=== PATIENT | male | born 1940 | race Caucasian/White ===

== ENCOUNTER → 2018-05-16 | Day surgery (SDC) | payer MEDICARE ==
[2018-05-15 15:26] LABS: BASOPHILS % 0.1 % (0.0-1.0); EOSINOPHILS # (AUTO) 0.1 (0.0-0.4); HEMATOCRIT 42.9 % (38.2-49.6); HEMOGLOBIN 13.5 g/dL (14.0-18.0); MEAN CORPUSCULAR HEMOGLOBIN 33.1 pg (28-32); MEAN CORPUSCULAR HGB CONC 31.5 g/dL (31-35); MEAN CORPUSCULAR VOLUME 105.1 fL (81-99); MONOCYTES # (AUTO) 0.6 (0.2-0.8); MONOCYTES % 8.4 % (4.4-11.3); NEUTROPHILS # (AUTO) 4.2 (2.1-6.9); NEUTROPHILS % 60.9 % (38.7-80.0); PLATELET COUNT 182 x10e3/uL (140-360); RED BLOOD COUNT 4.08 x10e6/uL (4.3-5.7); RED CELL DISTRIBUTION WIDTH 12.8 % (11.7-14.4)
[2018-05-15 15:45] LABS: ALBUMIN 3.4 g/dL (3.5-5.0); ALBUMIN/GLOBULIN RATIO 1.1 (0.8-2.0); ANION GAP 10.3 mmol/L (8-16); CALCIUM 9.2 mg/dL (8.4-10.2); CREATININE, SERUM 1.41 mg/dL (0.72-1.25); POTASSIUM 4.3 mmol/L (3.5-5.1)
[~2018-05-16] VITALS: Ht 182.9 cm; Wt 72.1 kg
[~2018-05-16] MED LIST: ADVAIR 250-501 EACH INH; ALPRAZOLAM 0.5 MG TAB ONE; ARICEPT5 MG PO; ASPIRIN 325 MG TAB ONE; CELEBREX200 MG PO; CILOSTAZOL100 MG PO; CLINDAMYCIN HC300 MG PO; DIPHENHYDRAMINE HCL 25 MG CAP ONE; DONEPEZIL HCL5 M1 PO; FENTANYL CITRATE/PF 100MCG/2 ML INJ ONE; FUROSEMIDE40 MG PO; HEPARIN SOD/SOD CHLORIDE 2,000 ML ONE; HYDROCODONE PO; IOPAMIDOL 300MG/ML 100 ML INFUS..BTL IV ONE; KLOR-CON M1010 MEQ PO; LASIX20 MG PO; LEVAQUIN500 MG PO; LIDOCAINE HCL 2% LOCAL 20 ML VIAL ONE; LORATADINE10 MG PO; MELOXICAM7.5 MG PO; MIDAZOLAM HCL 2 MG/2 ML VIAL ONE; MONTELUKAST SOD10 MG PO; NAMENDA5 MG PO; PROAIR HFA INH8.5 GM INH; PROTAMINE SULFATE 10 MG/ML 5 ML VIAL ONE; SODIUM CHLORIDE 0.9% 100 ML 100 ML ONE; SODIUM CHLORIDE 0.9% 1000ML 0 ML ONE; SODIUM CHLORIDE 0.9% 1000ML 1,000 ML ONE; TESTOSTERONE TP; TICAGRELOR 90 MG TABLET ONE; TRIAMCINOLONE A15 G3; VERAPAMIL HCL 2.5 MG/ML 2 ML VIAL ONE
[2018-05-16 12:01] VITALS: BP 159/92
[2018-05-16 14:22] VITALS: BP 123/58
[2018-05-16 14:25] VITALS: BP 130/59
--- NOTE | 2018-05-16 14:35 | NUR ---
Report received from Neelam Martin RN, review of procedural findings and medications given. Patient drowsy, easily aroused. maintains airway and room air saturations of 94-96%. No gross issues of pressure, pain, pallor or dysrhythmia. IV site patent with NS 0.9% at KVO by dial-flow. to left forearm patient hemodynamically stable with hemostasis right groin dressing CDI w/o s/s of bleeding. pt recovering in PACU 14. pt denies need at this time. Bed low and locked, side rails up x2 , call light within reach.. assume of care. - cgf
[2018-05-16 15:10] VITALS: BP 122/75
--- NOTE | 2018-05-16 15:14 | NUR ---
Family to bedside. Right groin remains uncompromised. Reinforced bedrest. POC reviewed with family - cgf
--- NOTE | 2018-05-16 16:12 | NUR ---
Relieved by Dickson Conley RN, review of documented events and VS trend. family at bedside. awaiting DC
--- NOTE | 2018-05-17 00:09 | Operative Report ---
DATE OF PROCEDURE: 05/16/2018 SURGEON: João Lopez MD INDICATION: Peripheral arterial disease with claudication. PROCEDURES PERFORMED: 1. Abdominal aorta catheter placement, abdominal aortogram. 2. Bilateral lower extremity angiograms. 3. Selective catheter placement, right femoral artery and left superficial femoral artery. 4. Additional third-order catheter placement, right femoral artery and left anterior tibial artery. 5. Stent placement in the right common iliac artery. COMPLICATIONS: None. RECOMMENDATIONS: 1. Staged right superficial femoral artery intervention via the left common femoral artery. 2. Staged left superficial femoral artery intervention via the left popliteal artery. BLOOD LOSS: 5 mL. DESCRIPTION OF PROCEDURE: Access obtained in the right femoral artery, 6-Paraguayan sheath was placed. Abdominal aortogram demonstrated 80% stenosis of the right common iliac artery. Right femoral artery appeared to be occluded. Distal vessels could not be seen. The catheter was then advanced from the right femoral artery to the left superficial femoral artery. Flush occlusion of the left femoral artery was noted with reconstitution of left popliteal artery. Two-vessel runoff with catheter placed in the anterior tibial artery was noted. Right femoral artery was completely occluded. Attempts to cross into the left femoral artery failed due to flush occlusion. A single 6 x 37 mm LifeStream stent was deployed post hand with a 9 mm balloon. Excellent end result with complete resolution of the gradient across the aortic valve. 0% residual stenosis. Right groin repaired using Vascade closure device. The patient discharged home with recommendations as listed above. João Lopez MD KSB/MODL /[id number]
== END | disposition home or self-care (01) ==
LOC: CATH LAB 10:03
PROVIDERS: ATTEND Internal Medicine Interventional Cardiology
DX: I70.213 Atherosclerosis of native arteries of extremities with intermittent claudication, bilateral legs (principal); I71.4 Abdominal aortic aneurysm, without rupture; F17.210 Nicotine dependence, cigarettes, uncomplicated; Z01.812 Encounter for preprocedural laboratory examination
CPT/HCPCS: 36415; 37221; 75625; 75716; 80053; 85025; C1725; C1760; C1766; C1769 ×2; C1874; C1887 ×2; C2623; J2001; J2250; J2720; J7030; Q9967; 36247

== ENCOUNTER → 2018-06-20 | Day surgery (SDC) | payer MEDICARE ==
[2018-06-16 11:09] LABS: BASOPHILS % 0.1 % (0.0-1.0); EOSINOPHILS # (AUTO) 0.2 (0.0-0.4); EOSINOPHILS % 1.9 % (0.0-6.0); HEMATOCRIT 40.9 % (38.2-49.6); HEMOGLOBIN 13.6 g/dL (14.0-18.0); LYMPHOCYTES # (AUTO) 1.7 (1.0-3.2); LYMPHOCYTES % 21.6 % (18.0-39.1); MEAN CORPUSCULAR HEMOGLOBIN 34.2 pg (28-32); MEAN CORPUSCULAR HGB CONC 33.3 g/dL (31-35); MEAN CORPUSCULAR VOLUME 102.8 fL (81-99); MONOCYTES # (AUTO) 0.6 (0.2-0.8); MONOCYTES % 7.9 % (4.4-11.3); NEUTROPHILS # (AUTO) 5.3 (2.1-6.9); NEUTROPHILS % 68.1 % (38.7-80.0); PLATELET COUNT 195 x10e3/uL (140-360); RED BLOOD COUNT 3.98 x10e6/uL (4.3-5.7); RED CELL DISTRIBUTION WIDTH 12.4 % (11.7-14.4)
[2018-06-16 11:47] LABS: ALANINE AMINOTRANSFERASE 16 IU/L (0-55); ALBUMIN 3.5 g/dL (3.5-5.0); ALBUMIN/GLOBULIN RATIO 1.2 (0.8-2.0); ALKALINE PHOSPHATASE 114 IU/L (40-150); ANION GAP 9.8 mmol/L (8-16); BLOOD UREA NITROGEN 26 mg/dL (7-26); BUN/CREATININE RATIO 24 (6-25); CALCIUM 9.3 mg/dL (8.4-10.2); CARBON DIOXIDE 28 mmol/L (22-29); CHLORIDE 103 mmol/L (98-107); CREATININE, SERUM 1.09 mg/dL (0.72-1.25); EST GLOMERULAR FILTRATION RATE > 60 ML/MIN (60-); GLUCOSE 92 mg/dL (74-118); POTASSIUM 3.8 mmol/L (3.5-5.1); SODIUM 137 mmol/L (136-145)
[~2018-06-20] VITALS: Ht 182.9 cm; Wt 81.6 kg
[~2018-06-20] MED LIST changes: -ASPIRIN 325 MG TAB ONE; +ATORVASTATIN CA20 MG PO; +CLOPIDOGREL75 MG PO; +HEPARIN SOD (PORCINE) 1000 UNIT/ML 30ML ONE; +NITROGLYCERIN/D5W 200 MCG/ML 250 ML ONE; -PROTAMINE SULFATE 10 MG/ML 5 ML VIAL ONE; -SODIUM CHLORIDE 0.9% 100 ML 100 ML ONE; -SODIUM CHLORIDE 0.9% 1000ML 0 ML ONE
--- NOTE | 2018-06-20 13:30 | NUR ---
9006 Received pt to rm #9 Identiferx2 Prepped in usual fashion for peripheral procedure Dr John quezada at bedside.VS stable Sinus levi ds/rn
[2018-06-20 13:45] VITALS: BP 158/80
[2018-06-20 15:30] VITALS: BP 108/67
--- NOTE | 2018-06-20 15:30 | NUR ---
Received to clinical lab technologist recovery room #10. A,A,O x3. VSS, denies pain, Alisson dressing to left groin C/D/I. Mick. pedal pulses palpable. No complaints, at bedside.
[2018-06-20 15:45] VITALS: BP 99/60
--- NOTE | 2018-06-20 15:52 | NUR ---
Report to Julee Grider RN.
[2018-06-20 17:00] VITALS: BP_SYST 123; BP_SYST 133; BP_DIAS 77
[2018-06-20 18:00] VITALS: BP 99/66
[2018-06-20 18:30] VITALS: BP 110/70
--- NOTE | 2018-07-07 08:43 | Operative Report ---
DATE OF PROCEDURE: 06/20/2018 SURGEON: João Lopez MD INDICATION: Peripheral arterial disease and claudication. PROCEDURES PERFORMED: 1. Abdominal aortogram. 2. Third order catheter placement from the left femoral artery to right superficial femoral artery. 3. Additional third-order catheter placement from the left femoral artery to the right anterior tibial artery. 4. Atherectomy of the right femoral artery with secondary thrombectomy. COMPLICATIONS: None. RECOMMENDATIONS: Staged intervention on the left femoral artery via the left popliteal approach. DESCRIPTION OF PROCEDURE: Access obtained in the left femoral artery. Patent stent in the right iliac. The catheter was advanced in the left femoral artery to the right superficial femoral artery. Complete occlusion of the right femoral artery was noted. The lesion was crossed using a Glidewire and the orbital atherectomy was performed. Large amounts of visible thrombus for which was secondary manual aspiration thrombectomy was required. Balloon angioplasty with 6 mm balloon resulted in excellent result, two vessel runoff with an occluded anterior tibial. No complications. Left groin repaired using Mynx closure device. The patient was discharged home same day. João Lopez MD KSB/MODL /[id number]
== END | disposition home or self-care (01) ==
LOC: CATH LAB 11:24
PROVIDERS: ATTEND Internal Medicine Interventional Cardiology
DX: I70.211 Atherosclerosis of native arteries of extremities with intermittent claudication, right leg (principal); I87.2 Venous insufficiency (chronic) (peripheral); Z01.812 Encounter for preprocedural laboratory examination; Z79.82 Long term (current) use of aspirin; Z79.02 Long term (current) use of antithrombotics/antiplatelets; Z87.891 Personal history of nicotine dependence
CPT/HCPCS: 36415; 37186; 37225; 75716; 80053; 85025; C1724; C1725; C1769 ×2; C1887 ×2; C2623 ×2; J1644; J2001; J2250; J7030; Q9967

== ENCOUNTER 2018-07-25 10:16 | Observation (INO) | payer MEDICARE ==
[2018-07-24 10:40] LABS: BASOPHILS % 0.1 % (0.0-1.0); EOSINOPHILS # (AUTO) 0.1 (0.0-0.4); EOSINOPHILS % 1.6 % (0.0-6.0); HEMATOCRIT 44.1 % (38.2-49.6); HEMOGLOBIN 14.6 g/dL (14.0-18.0); LYMPHOCYTES # (AUTO) 1.9 (1.0-3.2); MEAN CORPUSCULAR HEMOGLOBIN 33.1 pg (28-32); MEAN CORPUSCULAR HGB CONC 33.1 g/dL (31-35); MONOCYTES # (AUTO) 0.7 (0.2-0.8); MONOCYTES % 8.6 % (4.4-11.3); NEUTROPHILS # (AUTO) 4.9 (2.1-6.9); PLATELET COUNT 197 x10e3/uL (140-360); RED BLOOD COUNT 4.41 x10e6/uL (4.3-5.7); RED CELL DISTRIBUTION WIDTH 12.6 % (11.7-14.4)
[2018-07-24 10:47] LABS: ALANINE AMINOTRANSFERASE 22 IU/L (0-55); ALBUMIN 3.9 g/dL (3.5-5.0); ALBUMIN/GLOBULIN RATIO 1.3 (0.8-2.0); ALKALINE PHOSPHATASE 124 IU/L (40-150); ANION GAP 10.1 mmol/L (8-16); BLOOD UREA NITROGEN 25 mg/dL (7-26); BUN/CREATININE RATIO 23 (6-25); CALCIUM 9.4 mg/dL (8.4-10.2); CARBON DIOXIDE 28 mmol/L (22-29); CHLORIDE 104 mmol/L (98-107); CREATININE, SERUM 1.11 mg/dL (0.72-1.25); EST GLOMERULAR FILTRATION RATE > 60 ML/MIN (60-); GLUCOSE 87 mg/dL (74-118); POTASSIUM 4.1 mmol/L (3.5-5.1); SODIUM 138 mmol/L (136-145)
[2018-07-25] VITALS (13 sets, daily range): BP systolic 102–155; BP diastolic 51–95
[~2018-07-25] VITALS: Ht 182.9 cm; Wt 82.6 kg
[~2018-07-25 10:16] MED LIST changes: -ALPRAZOLAM 0.5 MG TAB ONE; -DIPHENHYDRAMINE HCL 25 MG CAP ONE; -FENTANYL CITRATE/PF 100MCG/2 ML INJ ONE; -HEPARIN SOD (PORCINE) 1000 UNIT/ML 30ML ONE; -HEPARIN SOD/SOD CHLORIDE 2,000 ML ONE; -IOPAMIDOL 300MG/ML 100 ML INFUS..BTL IV ONE; -LIDOCAINE HCL 2% LOCAL 20 ML VIAL ONE; -MIDAZOLAM HCL 2 MG/2 ML VIAL ONE; -NITROGLYCERIN/D5W 200 MCG/ML 250 ML ONE; -SODIUM CHLORIDE 0.9% 1000ML 1,000 ML ONE; -TICAGRELOR 90 MG TABLET ONE; -VERAPAMIL HCL 2.5 MG/ML 2 ML VIAL ONE
[2018-07-25] MEDS ORDERED: LIDOCAINE HCL 2% LOCAL 20 ML VIAL ONE (11:42)
[2018-07-25] MEDS ORDERED: HEPARIN SOD (PORCINE) 1000 UNIT/ML 30ML ONE (11:42)
[2018-07-25] MEDS ORDERED: FENTANYL CITRATE/PF 100MCG/2 ML INJ ONE (11:42)
[2018-07-25] MEDS ORDERED: HEPARIN SOD/SOD CHLORIDE 2,000 ML ONE (11:42)
[2018-07-25] MEDS ORDERED: MIDAZOLAM HCL 2 MG/2 ML VIAL ONE (11:42)
[2018-07-25] MEDS ORDERED: SODIUM CHLORIDE 0.9% 1000ML 1,000 ML ONE ×2 (11:43→12:26)
[2018-07-25] MEDS ORDERED: IOPAMIDOL 300MG/ML 100 ML INFUS..BTL IV ONE (11:43)
[2018-07-25] MEDS ORDERED: VERAPAMIL HCL 2.5 MG/ML 2 ML VIAL ONE (12:28)
[2018-07-25] MEDS ORDERED: SODIUM CHLORIDE 0.9% 50ML 50 ML ONE (12:45)
[2018-07-25] MEDS ORDERED: TICAGRELOR 90 MG TABLET ONE (12:45)
[2018-07-25] MEDS ORDERED: ASPIRIN 325 MG TAB ONE (12:46)
--- NOTE | 2018-07-25 13:00 | NUR ---
Report received from Troy Burgos RN, review of procedural findings and medications given. Patient alert and oriented. maintains airway and room air saturations of 96-98%. No gross issues of pressure, pain, pallor or dysrhythmia. IV site patent with NS 0.9% at 100ml/hr per gravity. patient hemodynamically stable with dressing to 6 omani sheath left posterior popliteal. dressing CDI w/o s/s of bleeding, caps present. transported to acu 8 - cgf procedure: CSI of L popliteal posterior approach Sheath puller: NA Meds Given Intra-Procedure Sedatives Versed - 2 mg Fentanyl - 50 mcg Anticoagulants Heparin - 8000 Units Fluids Input - 250ml Output - dtv Contrast Isovue 300 - 80ml Other Meds Protamine 80mg IV Brilinta 180mg PO Aspirin 325mg PO
--- NOTE | 2018-07-25 13:08 | NUR ---
Troy Burgos RN reporting that ACT 131 and sheath can be DC'd. Awaiting for available staff to assist in pull. pt and family updated on POC - cgf
--- NOTE | 2018-07-25 13:35 | NUR ---
pt placed prone w/o duress and family asked to wait in waiting till after sheath pull.
--- NOTE | 2018-07-25 13:40 | NUR ---
6french sheath aspirated, liberated from stat lock, and removed by Veronica Ya RTr. post sheath management underway
--- NOTE | 2018-07-25 13:56 | NUR ---
sheath post management complete. 15 minute hold time. no s/s of hematoma, no gross discolor, or pain. clean dressing applied. pt educated on strict bedrest and placed back to sitting position. family back to room
--- NOTE | 2018-07-25 15:06 | Operative Report ---
DATE OF PROCEDURE: 07/25/2018 SURGEON: João Lopez MD INDICATION: Peripheral arterial disease, claudication of the left lower extremity. PROCEDURES PERFORMED: 1. Ultrasound-guided access in the left popliteal artery. 2. Third order catheter placement from the left popliteal artery to the left iliac artery with unilateral extremity angiogram. 3. Atherectomy and drug-coated balloon angioplasty of the left femoral artery. 4. Secondary thrombectomy of the left femoral artery. COMPLICATIONS: None. RECOMMENDATIONS: Dual antiplatelet therapy. DESCRIPTION OF PROCEDURE: Access was obtained of the left popliteal artery using ultrasound guidance. A 6-Hungarian sheath was placed. The patient received 8000 units of intravenous heparin for anticoagulation. There was complete occlusion of the left femoral artery. Using a Roadrunner wire and support catheter, chronic total occlusions were crossed. The wire was exchanged to a Viper wire. Orbital atherectomy resulted in large amounts of visible thrombus for which manual and secondary thrombectomy of the left femoral artery was required, 5 and 6 mm drug-coated balloon angioplasty was performed. Excellent end result, less than 10% residual stenosis, two-vessel runoff to the left foot. No complications. Sheath was removed under manual pressure. The patient discharged home same day. João Lopez MD KSB/MODL /[id number]
--- NOTE | 2018-07-25 16:02 | NUR ---
Received patient from labor commissioner, alert ox3 pleasant gentleman, dgx of PAD s/p peripheral angiogram to left FFA via left popliteal with CSI and balloon, dressing in place. No drainage noted, no swelling noted, Bilateral LE however cold to touch and faint DPD and patient states is his baseline. VSS, denies any pains at this moment, IV patent, patient to lay flat until 6pm per report from cath lap nurse. Will monitor. Call light within reach
[2018-07-25] MEDS ORDERED: MORPHINE SULFATE INJ 4 MG/ML INJ 1ML IV PRN (16:15)
[2018-07-25] MEDS ORDERED: HYDROCODONE/APAP 5MG-325MG TAB PO PRN (16:15)
[2018-07-25] MEDS ORDERED: SODIUM CHLORIDE 0.9% 1000ML 1,000 ML IV SCH (16:15)
--- NOTE | 2018-07-25 16:23 | NUR ---
Orders transcribed from paper chart to [employer].
--- NOTE | 2018-07-25 16:24 | NUR ---
Patient denies any pains at the moment
--- NOTE | 2018-07-25 18:15 | NUR ---
BP 117/62, P58, Temp-97.5, O2Sats 96% RA, no resp distress, left popliteal area with no drainage, no bleeding, medicated for pain, IV line removed and cath tip in place, dressing applied and patient discharged according to orders. Presents stable at this time.
== END 2018-07-25 18:23 | disposition home or self-care (01) ==
LOC: CATH LAB 10:16 → CATH LAB V 13:55 → MED/SURG 15:54
PROVIDERS: ADMIT Internal Medicine Interventional Cardiology; ATTEND Internal Medicine Interventional Cardiology
DX: I70.212 Atherosclerosis of native arteries of extremities with intermittent claudication, left leg (principal); I87.2 Venous insufficiency (chronic) (peripheral); R60.0 Localized edema; Z87.891 Personal history of nicotine dependence; Z79.82 Long term (current) use of aspirin; I71.4 Abdominal aortic aneurysm, without rupture
CPT/HCPCS: 36415; 37186; 37225; 75710; 76937; 80053; 85025; C1724; C1725; C1766; C1769; C1887; C2623 ×2; G0378; J1644; J2001; J2250; J7030; Q9967; 36247

== ENCOUNTER → 2018-12-26 | Day surgery (SDC) | payer MEDICARE ==
[2018-12-20 10:27] LABS: BASOPHILS % 0.2 % (0.0-1.0); EOSINOPHILS # (AUTO) 0.1 (0.0-0.4); HEMATOCRIT 45.3 % (38.2-49.6); HEMOGLOBIN 14.8 g/dL (14.0-18.0); LYMPHOCYTES % 24.2 % (18.0-39.1); MEAN CORPUSCULAR HEMOGLOBIN 32.7 pg (28-32); MEAN CORPUSCULAR HGB CONC 32.7 g/dL (31-35); MEAN CORPUSCULAR VOLUME 100.2 fL (81-99); MONOCYTES # (AUTO) 0.8 (0.2-0.8); MONOCYTES % 10.1 % (4.4-11.3); NEUTROPHILS # (AUTO) 5.2 (2.1-6.9); NEUTROPHILS % 64.1 % (38.7-80.0); PLATELET COUNT 225 x10e3/uL (140-360); RED BLOOD COUNT 4.52 x10e6/uL (4.3-5.7); RED CELL DISTRIBUTION WIDTH 14.5 % (11.7-14.4)
[2018-12-20 10:52] LABS: ALBUMIN 3.9 g/dL (3.5-5.0); ALBUMIN/GLOBULIN RATIO 1.3 (0.8-2.0); ANION GAP 12.7 mmol/L (8-16); CALCIUM 9.8 mg/dL (8.4-10.2); CREATININE, SERUM 1.17 mg/dL (0.72-1.25); POTASSIUM 3.7 mmol/L (3.5-5.1)
[~2018-12-26] VITALS: Ht 182.9 cm; Wt 82.6 kg
[2018-12-26] VITALS (8 sets, daily range): BP systolic 103–156; BP diastolic 60–81
[~2018-12-26] MED LIST changes: +ALPRAZOLAM 0.5 MG TAB ONE; +DIPHENHYDRAMINE HCL 25 MG CAP ONE; +FENTANYL CITRATE/PF 100MCG/2 ML INJ ONE; +HEPARIN SOD (PORCINE) 1000 UNIT/ML 30ML ONE; +HEPARIN SOD/SOD CHLORIDE 2,000 ML ONE; +IOPAMIDOL 300MG/ML 100 ML INFUS..BTL IV ONE; +LIDOCAINE HCL 2% LOCAL 20 ML VIAL ONE; +MIDAZOLAM HCL 2 MG/2 ML VIAL ONE; +NALOXONE HCL INJ 0.4 MG/ML AMP ONE; +SODIUM CHLORIDE 0.9% 1000ML 1,000 ML ONE; +VERAPAMIL HCL 2.5 MG/ML 2 ML VIAL ONE
--- NOTE | 2018-12-26 17:02 | NUR ---
1702pm pt in Rm #20, Alert oriented and appropriate, PERRLA, respirations even and unlabored to room air. Pulses x4 extremities equal and faint. Pedal pulses PT/DP weak to nonexistent and marked. Cap fill brisk < 3 sec.Left foot swollen pedal pulse palpable.. Rt arm TR band site with gross issues pain pallor or pressure. Skin warm and dry integrity appears intact in general. IV let lateral arm site and presents healthy . NS 0.9% started at 100ml/hr per controller. Abdomen soft and supple. pt offered toileting, denies need to urinate or defecate. Personal affects with patient. Family at bedside Lottie. Pt and family verbalizes understanding of POC. Rt Tr band ok to decrease at 1800pm. Tolerated po intake. ds/rn
--- NOTE | 2018-12-26 18:00 | NUR ---
1800 RADIAL Compression removal: Initial Cuff volume 13 cc 1800 -2cc Removed No hematoma/bleeding noted with normal neurovascular function. 1815 -5cc Removed No hematoma/ bleeding noted with normal neurovascular function. 1830 -5cc Removed No hematoma/bleeding noted with normal neurovascular function. 1845 -1cc Removed No hematoma/ bleeding noted with normal neurovascular function. Air removal completed. Stasis achieved sterile 2x2,Tegaderm, Coban dressing No hematoma, bleeding noted with normal neurovascular function. Wrist splint in place. Pt instructed on POC. Ds/Rn
--- NOTE | 2018-12-26 18:15 | NUR ---
1814 pt decsribes pain to rt arm note swollen upper arm Informed Md souza and pressure coban dressing applied. Explained to how to check neuro vascular function She understands well. Positive neuro vascular function ds/rn
--- NOTE | 2018-12-26 18:24 | NUR ---
1823 Dr Lopez check site ok to keep rt upper pressure dressing on till am on left upper arm. Ar continues to have normal neuro vascular function. ds/rn
--- NOTE | 2018-12-26 18:45 | NUR ---
1845Pt meets DC criteria Rt TR band assessed for s/s of complication and presence of hematoma. Skin warm, dry, no discolor, and pulses present. IV removed from left lat site. Distal tip appears intact. VS WNL. Pt denies pain, sob, or need at this time. Family at XXXXX. Review of discharge paperwork and follow up instructions. verbalized understanding. Pt to wheelchair and transported to front of hospital. Transferred to private vehicle under own strength w/o incident with DC paperwork in hand. - ds/rn
--- NOTE | 2018-12-26 18:45 | NUR ---
1845 pt left with in attendance aware or light pressure dressing to upper arm and that it may be removed with am shower. Normal neurovascular function to Tr-band site and denies discomfort. Aware to call DR Lopez if further swelling or un controlled bleeding occurs. vs and ekg stable ds/rn
--- NOTE | 2018-12-26 23:33 | Operative Report ---
DATE OF PROCEDURE: 12/26/2018 SURGEON: João Lopez MD INDICATION: Peripheral arterial disease, claudication of left lower extremity. PROCEDURES PERFORMED: 1. Bilateral lower extremity angiograms. 2. Third order catheter placement from the right radial artery to the left common femoral artery. 3. Additional third-order catheter placement from the right radial artery to the left tibial artery. 4. Atherectomy and angioplasty of the left proximal superficial femoral artery. 5. Secondary thrombectomy of the left superficial femoral artery. 6. Deployment of right wrist TR band. COMPLICATIONS: None. BLOOD LOSS: Minimal. RECOMMENDATIONS: Dual antiplatelet therapy for life. DESCRIPTION OF PROCEDURE: Access was obtained in the right radial artery. A 6-Somali sheath was placed, which was advanced from the right radial artery to the left common femoral artery. Bilateral angiograms of the lower extremity demonstrated mild disease in the right femoral artery, left proximal superficial femoral artery 80% stenosis. The patient received heparin for anticoagulation. Orbital atherectomy of the left femoral artery using a 2 mm CSI device was performed, large amounts of visible thrombus with manual aspiration thrombectomy was required. Balloon angioplasty with 6 mm balloon, excellent end result. Three-vessel runoff to the left foot. No complications. Right wrist TR band applied. The patient was discharged home same day. João Lopez MD KSB/MODL /[id number]
== END | disposition home or self-care (01) ==
LOC: CATH LAB 13:00
PROVIDERS: ATTEND Internal Medicine Interventional Cardiology
DX: I70.212 Atherosclerosis of native arteries of extremities with intermittent claudication, left leg (principal); I87.2 Venous insufficiency (chronic) (peripheral); Z01.812 Encounter for preprocedural laboratory examination; Z79.02 Long term (current) use of antithrombotics/antiplatelets; Z79.82 Long term (current) use of aspirin
CPT/HCPCS: 36415; 37186; 37225; 80053; 85025; C1724 ×2; C1769 ×2; J1644; J2001; J2250; J2310; J3010; J7030; Q9967

== ENCOUNTER → 2020-03-25 | Day surgery (SDC) | payer OTHER ==
[2020-03-20 13:58] LABS: BASOPHILS % 0.1 % (0.0-1.0); EOSINOPHILS # (AUTO) 0.1 (0.0-0.4); EOSINOPHILS % 1.9 % (0.0-6.0); HEMATOCRIT 41.7 % (38.2-49.6); HEMOGLOBIN 13.5 g/dL (14.0-18.0); LYMPHOCYTES # (AUTO) 1.7 (1.0-3.2); LYMPHOCYTES % 24.6 % (18.0-39.1); MEAN CORPUSCULAR HEMOGLOBIN 32.2 pg (28-32); MEAN CORPUSCULAR HGB CONC 32.4 g/dL (31-35); MEAN CORPUSCULAR VOLUME 99.5 fL (81-99); MONOCYTES # (AUTO) 0.7 (0.2-0.8); MONOCYTES % 9.8 % (4.4-11.3); NEUTROPHILS # (AUTO) 4.3 (2.1-6.9); NEUTROPHILS % 63.2 % (38.7-80.0); PLATELET COUNT 190 x10e3/uL (140-360); RED BLOOD COUNT 4.19 x10e6/uL (4.3-5.7); RED CELL DISTRIBUTION WIDTH 13.3 % (11.7-14.4)
[2020-03-20 14:18] LABS: ALANINE AMINOTRANSFERASE 17 IU/L (0-55); ALBUMIN 3.5 g/dL (3.5-5.0); ALBUMIN/GLOBULIN RATIO 1.2 (0.8-2.0); ALKALINE PHOSPHATASE 96 IU/L (40-150); ANION GAP 13.2 mmol/L (8-16); BLOOD UREA NITROGEN 23 mg/dL (7-26); BUN/CREATININE RATIO 21 (6-25); CALCIUM 8.7 mg/dL (8.4-10.2); CARBON DIOXIDE 29 mmol/L (22-29); CHLORIDE 103 mmol/L (98-107); CREATININE, SERUM 1.12 mg/dL (0.72-1.25); EST GLOMERULAR FILTRATION RATE > 60 ML/MIN (60-); GLUCOSE 99 mg/dL (74-118); POTASSIUM 4.2 mmol/L (3.5-5.1); SODIUM 141 mmol/L (136-145)
[~2020-03-25] MED LIST changes: +ASPIRIN 325 MG TAB ONE; +ASPIRIN EC81 MG PO; +CLOPIDOGREL BISULFATE 75 MG TAB ONE; -HEPARIN SOD (PORCINE) 1000 UNIT/ML 30ML ONE; +IOPAMIDOL 370 MG/ML 200 ML INFUS..BTL INJ ONE; -NALOXONE HCL INJ 0.4 MG/ML AMP ONE; -VERAPAMIL HCL 2.5 MG/ML 2 ML VIAL ONE
[2020-03-25 13:22] VITALS: BP_SYST 106; BP_SYST 108; BP_DIAS 77; BP_DIAS 88
[2020-03-25 13:30] VITALS: BP_SYST 108; BP_SYST 113; BP_DIAS 67; BP_DIAS 69
[2020-03-25 13:45] VITALS: BP 113/64
[2020-03-25 14:00] VITALS: BP 124/70
[2020-03-25 14:30] VITALS: BP 136/83
[2020-03-25 15:00] VITALS: BP 141/77
== END | disposition home or self-care (01) ==
LOC: CATH LAB 10:23
PROVIDERS: ATTEND Internal Medicine Interventional Cardiology
DX: I25.10 Atherosclerotic heart disease of native coronary artery without angina pectoris (principal); I25.118 Atherosclerotic heart disease of native coronary artery with other forms of angina pectoris; Z01.812 Encounter for preprocedural laboratory examination; Z20.822 Contact with and (suspected) exposure to COVID-19; Z79.02 Long term (current) use of antithrombotics/antiplatelets; Z79.82 Long term (current) use of aspirin
CPT/HCPCS: 36247; 36415; 37186; 37225; 75625; 75716; 76937; 80053; 85025; 93458; 99152; 99153; C1714; C1725; C1760; C1769; J2001; J2250; J3010; J7030; Q9967; U0002

== ENCOUNTER → 2021-06-29 | Outpatient (CLI) | payer OTHER ==
[~2021-06-29] MED LIST changes: -ALPRAZOLAM 0.5 MG TAB ONE; -ASPIRIN 325 MG TAB ONE; -CLOPIDOGREL BISULFATE 75 MG TAB ONE; -DIPHENHYDRAMINE HCL 25 MG CAP ONE; -FENTANYL CITRATE/PF 100MCG/2 ML INJ ONE; -HEPARIN SOD/SOD CHLORIDE 2,000 ML ONE; -IOPAMIDOL 300MG/ML 100 ML INFUS..BTL IV ONE; -IOPAMIDOL 370 MG/ML 200 ML INFUS..BTL INJ ONE; -LIDOCAINE HCL 2% LOCAL 20 ML VIAL ONE; -MIDAZOLAM HCL 2 MG/2 ML VIAL ONE; -SODIUM CHLORIDE 0.9% 1000ML 1,000 ML ONE
== END ==
LOC: RAD 10:16
PROVIDERS: ATTEND Orthopaedic Surgery
DX: S72.001D Fracture of unspecified part of neck of right femur, subsequent encounter for closed fracture with routine healing (principal)

== ENCOUNTER → 2021-07-14 | Day surgery (SDC) | payer OTHER ==
[2021-07-10 12:48] LABS: BASOPHILS % 0.2 % (0.0-1.0); EOSINOPHILS # (AUTO) 0.1 (0.0-0.4); EOSINOPHILS % 0.5 % (0.0-6.0); HEMATOCRIT 40.4 % (38.2-49.6); HEMOGLOBIN 13.1 g/dL (14.0-18.0); LYMPHOCYTES # (AUTO) 1.8 (1.0-3.2); LYMPHOCYTES % 18.6 % (18.0-39.1); MEAN CORPUSCULAR HEMOGLOBIN 33.1 pg (28-32); MEAN CORPUSCULAR HGB CONC 32.4 g/dL (31-35); MONOCYTES # (AUTO) 0.8 (0.2-0.8); MONOCYTES % 8.5 % (4.4-11.3); NEUTROPHILS # (AUTO) 6.8 (2.1-6.9); NEUTROPHILS % 71.5 % (38.7-80.0); PLATELET COUNT 235 x10e3/uL (140-360); RED BLOOD COUNT 3.96 x10e6/uL (4.3-5.7); RED CELL DISTRIBUTION WIDTH 14.6 % (11.7-14.4)
[2021-07-10 13:07] LABS: ALBUMIN 3.3 g/dL (3.5-5.0); ANION GAP 14.6 mmol/L (8-16); CALCIUM 8.8 mg/dL (8.4-10.2); CREATININE, SERUM 0.92 mg/dL (0.72-1.25); POTASSIUM 3.6 mmol/L (3.5-5.1)
[2021-07-14] VITALS (11 sets, daily range): BP systolic 109–156; BP diastolic 62–84
[~2021-07-14] VITALS: Ht 182.9 cm; Wt 70.8 kg
[~2021-07-14] MED LIST changes: +ALBUTEROL0.63 MG/3 NEB; +ALENDRONATE SOD70 MG PO; +ALPRAZOLAM 0.5 MG TAB ONE; +DIPHENHYDRAMINE HCL 25 MG CAP ONE; +FENTANYL CITRATE/PF 100MCG/2 ML INJ ONE; +HEPARIN SOD/SOD CHLORIDE 2,000 ML ONE; +IOPAMIDOL 370 MG/ML 100 ML INFUS..BTL INJ ONE; +LIDOCAINE HCL 1% LOCAL INJ 20 ML VIAL ONE; +LINZESS145 MCG PO; +MIDAZOLAM HCL 2 MG/2 ML VIAL ONE; +SODIUM CHLORIDE 0.9% 1000ML 1,000 ML ONE; +TORSEMIDE100 MG PO; +VERAPAMIL HCL 2.5 MG/ML 2 ML VIAL ONE
== END | disposition home or self-care (01) ==
LOC: CATH LAB 11:02
PROVIDERS: ATTEND Internal Medicine Interventional Cardiology
DX: I25.118 Atherosclerotic heart disease of native coronary artery with other forms of angina pectoris (principal); R94.39 Abnormal result of other cardiovascular function study; Z01.812 Encounter for preprocedural laboratory examination; Z20.822 Contact with and (suspected) exposure to COVID-19; Z79.02 Long term (current) use of antithrombotics/antiplatelets; Z79.82 Long term (current) use of aspirin; Z79.899 Other long term (current) drug therapy
CPT/HCPCS: 36415; 76937; 80053; 83880; 85025; 93454; 99152; C1887; C1894; J2001; J2250; J3010; J7030; Q9967; U0002

== ENCOUNTER → 2021-08-10 | Outpatient (CLI) | payer MEDICARE, OTHER ==
[~2021-08-10] MED LIST changes: -ALPRAZOLAM 0.5 MG TAB ONE; -DIPHENHYDRAMINE HCL 25 MG CAP ONE; -FENTANYL CITRATE/PF 100MCG/2 ML INJ ONE; -HEPARIN SOD/SOD CHLORIDE 2,000 ML ONE; -IOPAMIDOL 370 MG/ML 100 ML INFUS..BTL INJ ONE; -LIDOCAINE HCL 1% LOCAL INJ 20 ML VIAL ONE; -MIDAZOLAM HCL 2 MG/2 ML VIAL ONE; -SODIUM CHLORIDE 0.9% 1000ML 1,000 ML ONE; -VERAPAMIL HCL 2.5 MG/ML 2 ML VIAL ONE
== END ==
LOC: RAD 09:45
PROVIDERS: ATTEND Orthopaedic Surgery
DX: M25.551 Pain in right hip (principal)

== ENCOUNTER → 2021-09-16 | Outpatient (CLI) | payer OTHER | LOC: RAD 10:16 | PROVIDERS: ATTEND Orthopaedic Surgery | DX: M25.551 Pain in right hip (principal) ==

== ENCOUNTER → 2023-09-22 | Day surgery (SDC) | payer MEDICARE, OTHER ==
[~2023-09-22] MED LIST changes: +ACETAMINOPHEN-1 EAC4 PO; +BUPIVACAINE HCL 0.5% 10ML MPF VIAL INJ ONE; +EPHEDRINE SULFATE INJ 50 MG/ML VIAL ONE; +FENTANYL CITRATE/PF 100MCG/2 ML INJ ONE; +FLONASE ALLERG9.9 ML INH; +LEVOCETIRIZINE D5 MG PO; +LIDOCAINE HCL 2% LOCAL INJ 5 ML SDV VIAL INJ ONE; +MUPIROCIN 2% OINT 22 GM TUBE ONE; +PANTOPRAZOLE SO40 MG PO; +PHENYLEPHRINE HCL 1% 10 MG/ML VIAL ONE; +PROPOFOL IV EMULSION 10 MG/ML 20 ML VIAL ONE
[2023-09-22] MEDS: LACTATED RINGER'S 1,000 ML ONE (06:01)
[2023-09-22 06:22] LABS: BASOPHILS % 0.2 % (0.0-1.0); EOSINOPHILS # (AUTO) 0.1 (0.0-0.4); EOSINOPHILS % 1.3 % (0.0-6.0); HEMATOCRIT 39.2 % (38.2-49.6); LYMPHOCYTES % 21.9 % (18.0-39.1); MEAN CORPUSCULAR HEMOGLOBIN 32.9 pg (28-32); MEAN CORPUSCULAR HGB CONC 33.2 g/dL (31-35); MEAN CORPUSCULAR VOLUME 99.2 fL (81-99); MONOCYTES # (AUTO) 0.8 (0.2-0.8); MONOCYTES % 9.1 % (4.4-11.3); NEUTROPHILS # (AUTO) 6.1 (2.1-6.9); NEUTROPHILS % 66.6 % (38.7-80.0); PLATELET COUNT 201 x10e3/uL (140-360); RED BLOOD COUNT 3.95 x10e6/uL (4.3-5.7); RED CELL DISTRIBUTION WIDTH 13.2 % (11.7-14.4); WHITE BLOOD COUNT 9.14 x10e3/uL (4.8-10.8)
[2023-09-22 07:50] VITALS: BP 111/75; PULSE 62; RESP 12; O2SAT 99
== END | disposition home or self-care (01) ==
LOC: OR 05:28
PROVIDERS: ATTEND Plastic Surgery
DX: M15.1 Heberden's nodes (with arthropathy) (principal); M1A.9XX1 Chronic gout, unspecified, with tophus (tophi); M67.441 Ganglion, right hand; I25.10 Atherosclerotic heart disease of native coronary artery without angina pectoris; I10 Essential (primary) hypertension; E78.5 Hyperlipidemia, unspecified; J44.9 Chronic obstructive pulmonary disease, unspecified; K58.9 Irritable bowel syndrome, unspecified; Z79.02 Long term (current) use of antithrombotics/antiplatelets; Z79.899 Other long term (current) drug therapy; Z95.5 Presence of coronary angioplasty implant and graft
CPT/HCPCS: 26236; 36415; 85025; 88304; J0690; J2001; J2371; J2704; J3010; J7121